=== PATIENT | male | born 1995 | race Caucasian/White ===

== ENCOUNTER 2024-05-05 16:48 | Emergency (ER) | payer OTHER, SELFPAY ==
[2024-05-05 16:58] VITALS: BP 150/86; PULSE 65; RESP 16; TEMP 36.4; O2SAT 100
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
== END 2024-05-05 17:56 | disposition home or self-care (01) ==
PROVIDERS: Emergency Provider Nurse Practitioner
DX: S05.02XA Injury of conjunctiva and corneal abrasion without foreign body, left eye, initial encounter (principal); W54.8XXA Other contact with dog, initial encounter
CPT/HCPCS: 99213; A9270; G0463

== ENCOUNTER 2024-07-22 19:18 | Emergency (ER) | payer OTHER, SELFPAY ==
--- NOTE | ~2024-07-22 | XR_ITS ---
EXAM: XR finger 4th LT min 2V DATE: 07/22/2024 19:34 HISTORY: 4th finger injury, swelling/pain PIP . COMPARISON: None available. FINDINGS: Normal mineralization. No fracture or dislocation. No lytic or blastic lesion. Joint space s are maintained. No erosion or periosteal change. Soft tissues within normal limits. IMPRESSION: No acute osseous finding in the left fourth finger. Reviewed, dictated and finalized at location K.
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
[2024-07-22 19:34] VITALS: BP 125/81; PULSE 64; RESP 16; TEMP 36.1; O2SAT 98
== END 2024-07-22 19:52 | disposition home or self-care (01) ==
PROVIDERS: Emergency Provider Nurse Practitioner Family
DX: S63.615A Unspecified sprain of left ring finger, initial encounter (principal); V86.06XA Driver of dirt bike or motor/cross bike injured in traffic accident, initial encounter
CPT/HCPCS: 73140; 99213; G0463

== ENCOUNTER 2024-10-12 15:38 | Emergency (ER) | payer OTHER, SELFPAY ==
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
[2024-10-12 15:47] VITALS: BP 133/82; PULSE 80; RESP 16; TEMP 36.1; O2SAT 98
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
== END 2024-10-12 16:48 | disposition home or self-care (01) ==
PROVIDERS: Emergency Provider Nurse Practitioner Family
DX: S60.121A Contusion of right index finger with damage to nail, initial encounter (principal); W27.8XXA Contact with other nonpowered hand tool, initial encounter; I10 Essential (primary) hypertension; F41.9 Anxiety disorder, unspecified
CPT/HCPCS: 11740; 73140; 99213; G0463

== ENCOUNTER 2024-12-30 15:50 | Emergency (ER) | payer OTHER, SELFPAY ==
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
[2024-12-30 15:59] VITALS: BP 152/99; PULSE 88; RESP 16; TEMP 36.9; O2SAT 98
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
== END 2024-12-30 16:26 | disposition home or self-care (01) ==
PROVIDERS: Emergency Provider Nurse Practitioner
DX: S49.92XA Unspecified injury of left shoulder and upper arm, initial encounter (principal); V18.9XXA Unspecified pedal cyclist injured in noncollision transport accident in traffic accident, initial encounter; I10 Essential (primary) hypertension; F41.9 Anxiety disorder, unspecified
CPT/HCPCS: 73030; 99213; G0463